=== PATIENT | female | born 1945 | race Caucasian/White ===

== ENCOUNTER 2023-05-03 21:22 | Emergency (ER) | payer OTHER, SELFPAY ==
[2023-05-03 21:28] VITALS: BP 90/47
--- NOTE | 2023-05-03 22:20 | ED.GENMED ---
History of Present Illness
General
Chief Complaint: Musculo-Skeletal Complaint
Source: patient and family
Time Seen by Provider: 05/03/23 22:05
Travel History
Have you had any contact with someone who has COVID-19?: No
Do you have any symptoms of coronavirus? Fever > 100 degrees, chills, cough, shortness of breath, sore throat, loss of taste or smell, muscle aches, or headache?: No
History of Present Illness
History of Present Illness:
78-year-old female presents emergency department after mechanical trip and fall, while walking outside towards her car from her daughter's house. It was witnessed by her . There was no loss of consciousness. Her right ankle twisted and
patient fell down onto her left side. She did not hit her head. Patient is not on antiplatelet/anticoagulant medication. She was initially nauseous but no longer. She was unable to get up on her own and therefore an ambulance was called. Here
in the ER, patient denies headache, neck pain, numbness, tingling, chest pain, dyspnea, abdominal pain. She does report intense left shoulder pain and less so right ankle pain.
Past History
Past History
ED Past Medical History: Other (Breast cancer, thyroid disease)
ED Past Surgical History: Other (Lumpectomy)
Social History
Tobacco: Non-smoker
Alcohol: None
Drug: None
Personal:
Phy Exam
Physical Exam
Physical Exam:
GENERAL: Alert , in no apparent distress
EYE: pupils equal and reactive, EOMI, no photophobia
NECK: Supple, no significant adenopathy, no midline tenderness.
ENT: o/p clr, mmm, no signs of head or facial injury, no flynn, no raccoon.
CARDIAC: Regular rate and rhythm .
LUNGS: Clear breath sounds bilaterally, no acute respiratory distress, no wheezes/rales/rhonchi
ABDOMEN: Soft, without focal tenderness, no r/g
NEUROLOGICAL: Alert and oriented, no focal neuro deficits
SKIN: Warm and dry, skin intact.
MUSCULOSKELETAL: No edema, well perfused. There is tenderness to palpation noted at the left shoulder area with markedly limited range of motion due to pain. No tenderness to palpation or gross abnormalities noted distally in the humerus elbow
forearm wrist hand area. The right ankle is without deformity, swelling, tenderness to palpation, or limitation range of motion. Neurovascularly intact.
PSYCH: Normal and appropriate interaction.
Course
Orders/Labs/Results
Orders:
Orders
05/03/23 21:36
CR Ankle - Right Min 3 Views * Urgent
Reason For Exam: fall, right ankle pain
CR Humerus - Left Min 2 Views* Urgent
Comment:
Reason For Exam: fall, left upper arm
05/03/23 22:42
Ibuprofen [Motrin] 400 mg PO NOW STA
Oxycodone/Acetaminophen [Percocet 5/325] 1 tablet PO NOW STA
Vital Signs
Initial and Last Documented VS:
Initial Vital Signs
Pulse Resp BP Pulse Ox
65 18 90/47 98
05/03/23 21:28 05/03/23 21:28 05/03/23 21:28 05/03/23 21:28
Last Documented Vital Signs
Pulse Resp BP Pulse Ox
65 18 90/47 98
05/03/23 21:28 05/03/23 21:28 05/03/23 21:28 05/03/23 21:28
*Critical Care Note
Total Time (30-74mins, 75-104mins- exclusive of procedures): Not Applicable
Update Note
Update Note:
Patient presents to the Emergency Department with ____fall
Number and Complexity of Problems Addressed at the Encounter
� Chronic conditions affecting care:
� Acute Exacerbation and/or Progression of Chronic Illness:
� Differential Diagnosis includes: But not limited to shoulder fracture, shoulder strain, ankle strain, etc.
Amount and/or Complexity of Data to be Reviewed and Analyzed
� I performed an independent evaluation of and my interpretation is:
EKG:
CT:
Xrays: Left shoulder fracture, right ankle normal
Laboratory Studies:
Other:
� Review of other/old records reveals:
� Clinical information was obtained by an independent historian: Daughter and son
� Prescriptions/Medications Considered but not given:
� Further testing considered but not performed:
Risk of Complications and/or Morbidity or Mortality of Patient Management
� Social determinants of health affecting care:
� Discussion with other providers (PCP, Hospitalists, Consultants, etc):
� Escalation of care including admission/observation vs risk of discharge considered: Pt with nvit exam, no s/sxs to suggest chi, or more worrisome illness. D/w pt andfamily import of f/uand reasons to rted, given sling and pain
meds, ortho f/u
ED Attending Note
-
Portions of this chart may have been created with voice recognition software.� Occasional wrong word or��sound alike� substitutions may have occurred due to the inherent limitations of voice recognition software.
Discharge Plan
Departure
Patient Disposition: Home (Routine Discharge)
Date of Disposition: 05/03/23
Time of Disposition: 22:29
Patient with high blood pressure during this ER visit?: No
Condition: Good
Discharge Problem:
Closed fracture of shoulder
Instructions: Ibuprofen, Shoulder Fracture, How to Use a Shoulder Sling
Prescriptions:
New
oxycodone-acetaminophen [Percocet] 5-325 mg tablet
1 tab PO Q6HPRN PRN (Reason: pain) Qty: 7 0RF
oxycodone-acetaminophen [Percocet] 5-325 mg tablet
1 tab PO Q6HPRN PRN (Reason: pain) Qty: 7 0RF
Referrals:
Lauro Wick MD [Active] - Next open appointment
Higinio Amador MD [Family Provider] -
Activity Restrictions/Additional Instructions:
IF YOU DEVELOP NUMBNESS, TINGLING, INCREASING/NEW PAIN, SEVERE HEADACHE, CHEST PAIN, TROUBLE BREATHING, OR OTHER WORRISOME SIGNS, GO TO THE ER IMMEDIATELY!
Interventions
Interventions:
*Risk Screen - Suicide Last Done: 05/03/23 21:28
*General Assessment Last Done: 05/03/23 21:28
*Neglect/Abuse Screening Last Done: 05/03/23 21:28
ED- Fall Risk Assessment Last Done: 05/03/23 22:05
*ED COVID-19 Vaccine History Last Done: 05/03/23 22:57
*Nursing Disposition Last Done: 05/03/23 22:57
ED-Musculoskeletal Assessment Last Done: 05/03/23 22:15
Discharge Date and Time
Discharge Date/Time: 05/03/23 22:58
[2023-05-03] MEDS: MOTRIN 400 MG PO (22:45)
[2023-05-03] MEDS: PERCOCET 5/325 1 TABLET PO (22:45)
== END 2023-05-03 22:58 | disposition home or self-care (01) ==
LOC: EMR 21:22
PROVIDERS: EMERGENCY PHYSICIAN Emergency Medicine; FAMILY PHYSICIAN Internal Medicine
DX: S42.292A Other displaced fracture of upper end of left humerus, initial encounter for closed fracture (principal); W01.0XXA Fall on same level from slipping, tripping and stumbling without subsequent striking against object, initial encounter
CPT/HCPCS: 99283; 73060; 73610